=== PATIENT | male | born 1950 | race African-American/Black ===

== ENCOUNTER 2018-06-22 17:47 | Inpatient (IN) | payer MEDICARE, MEDICAID ==
[2018-06-22] VITALS (25 sets, daily range): BP systolic 100–218; BP diastolic 52–113; BMI 20.4
[~2018-06-22] VITALS: Ht 182.9 cm; Wt 68.2 kg
--- NOTE | ~2018-06-22 | MORECARE ---
CASE MANAGEMENT DISCHARGE SUMMARY PATIENT: TRINH MANNING UNIT: [id number] ADM DATE: 06/22/18 AGE: 67 : 49 SEX: M ROOM/BED: D.2303 AUTHOR: NEIL,DOC PHYSICIAN: REFERRING PHYSICIAN: DREW SANDERSON MD DATE OF SERVICE: 06/27/18 Discharge Plan Patient Name: TRINH MANNING Facility: [facility]:[place] : 1950 Planned Disposition: Home Anticipated Discharge Date: Discharge Date: Expected LOS: Initial Reviewer: [email or web address] Initial Review Date: 06/27/2018 Generated: 06/27/18 5:27 pm Comments DCP- Discharge Planning Updated by [email or web address]: April Arango on 06/27/18 3:[address] Patient Name: TRINH MANNING Admission Status: Elective Accout number: [id number] Admission Date: 06-22-2018 : 1950 Admission Diagnosis:SEPSIS, UNSPECIFIED ORGANISM Attending: DREW SANDERSON Current LOS: 5 Anticipated DC Date: Planned Disposition: Home Primary Insurance: [employer] ADV Discharge Planning Comments: CM met with patient and his sister (Aiyana) at bedside after verbal consent. Patient states he is planning on returning to his home with his sister. They live together in the home. Patient states he has a walker and wheelchair. Cm explained that if he had to continue with oxygen then he would need to have walk test. Patient denies any needs at this time. Cm will continue to follow and assist as needed with discharge planning / needs. Retail Marketing Specialist: April Arango DCPIA - Discharge Planning Initial Assessment Updated by [email or web address]: April Arango on 06/27/18 4:16 pm * Is the patient Alert and Oriented? Yes * How many steps to enter\exit or inside your home? * PCP DR GAINES * Pharmacy [facility] IN [place], [place] * Preadmission Environment Home with Family * ADLs Partial Dependent * Partial ADLs (Assistance needed) Bathing * Equipment Walker Wheelchair * List name and contact numbers for known caregivers / representatives who currently or will assist patient after discharge: AIYANA WARD (SISTER) [phone] * Verbal permission to speak to the caregivers and representatives has been obtained from the patient. Yes * Community resources currently utilized None * Additional services required to return to the preadmission environment? No * Can the patient safely return to the preadmission environment? Yes * Has this patient been hospitalized within the prior 30 days at any hospital? No Last DP export: 06/27/18 3:15 Patient Name: TRINH MANNING Page 63024 at 1627 All edits/amendments must be made on the electronic document DICTATION DATE: 06/27/181625 TUCK POINTER HELPER: DAPHNIE 06/27/181625 RPT#: [id number] DC DATE: STATUS: ADM IN [facility] [address] [place] [address] END OF REPORT
--- NOTE | ~2018-06-22 | MORECARE ---
CASE MANAGEMENT DISCHARGE SUMMARY PATIENT: TRINH MANNING UNIT: [id number] ADM DATE: 06/22/18 AGE: 67 : 49 SEX: M ROOM/BED: D.2303 AUTHOR: NEIL,DOC PHYSICIAN: REFERRING PHYSICIAN: DREW SANDERSON MD DATE OF SERVICE: 07/16/18 Discharge Plan Patient Name: TRINH MANNING Facility: [facility]:[place] : 1950 Planned Disposition: Home Anticipated Discharge Date: Discharge Date: Expected LOS: Initial Reviewer: [email or web address] Initial Review Date: 06/27/2018 Generated: 07/16/18 8:53 pm Comments DCP- Discharge Planning Updated by [email or web address]: April Arango on 07/16/18 6:[address] Late Entry 07/16/18 @ 1630 CM received notice from [facility] that patient had been denied. CM called and spoke with patients sister to see if she would mind if we faxed records to [facility] in [place]. Vidhya Ward patients sister requested records to be forwarded to [facility] in [place]. CM will contact [facility] in in am. CM will continue to follow and assist with discharge planning as needed. DCP- Discharge Planning Updated by [email or web address]: April Arango on 07/12/18 4:[address] CM received notice for [facility]ACH consult. CM spoke with patients sister Vidhya Ward she agreed on [facility]. CM called [phone] [facility] regarding referral. CM faxed [phone] records to [facility] with [facility]. [facility] stated it would probably be 1st on next week before determination of acceptance / denial is made. CM will continue to follow and assist as needed with discharge planning needs. DCP- Discharge Planning Updated by [email or web address]: April Arango on 06/27/18 4:[address] Patient Name: TRINH MANNING Admission Status: Elective Accout number: [id number] Admission Date: 06-22-2018 : 1950 Admission Diagnosis:SEPSIS, UNSPECIFIED ORGANISM Attending: DREW SANDERSON Current LOS: 5 Anticipated DC Date: Planned Disposition: Home Primary Insurance: [employer] MEDICARE ADV Discharge Planning Comments: CM met with patient and his sister (Vidhay) at bedside after verbal consent. Patient states he is planning on returning to his home with his sister. They live together in the home. Patient states he has a walker and wheelchair. Cm explained that if he had to continue with oxygen then he would need to have walk test. Patient denies any needs at this time. Cm will continue to follow and assist as needed with discharge planning / needs. Therapeutic Massage Technician: April Arango DCPIA - Discharge Planning Initial Assessment Updated by [email or web address]: April Arango on 06/27/18 4:16 pm * Is the patient Alert and Oriented? Yes * How many steps to enter\exit or inside your home? * PCP DR GAINES * Pharmacy [facility] IN [place], [place] * Preadmission Environment Home with Family * ADLs Partial Dependent * Partial ADLs (Assistance needed) Bathing * Equipment Walker Wheelchair * List name and contact numbers for known caregivers / representatives who currently or will assist patient after discharge: VIDHYA WARD (SISTER) [phone] * Verbal permission to speak to the caregivers and representatives has been obtained from the patient. Yes * Community resources currently utilized None * Additional services required to return to the preadmission environment? No * Can the patient safely return to the preadmission environment? Yes * Has this patient been hospitalized within the prior 30 days at any hospital? No Last DP export: 07/12/18 6:13 p Patient Name: TRINH MANNING Page 88730 at 1953 All edits/amendments must be made on the electronic document DICTATION DATE: 07/16/181952 AUTOMOTIVE PARTS COUNTER ASSOCIATE: DAPHNIE 07/16/181952 RPT#: [id number] DC DATE: STATUS: ADM IN [facility] [address] [place] [address] END OF REPORT
--- NOTE | ~2018-06-22 | MORECARE ---
CASE MANAGEMENT DISCHARGE SUMMARY PATIENT: TRINH MANNING UNIT: [id number] ADM DATE: 06/22/18 AGE: 67 : 49 SEX: M ROOM/BED: D.2303 AUTHOR: NEIL,DOC PHYSICIAN: REFERRING PHYSICIAN: DREW SANDERSON MD DATE OF SERVICE: 07/18/18 Discharge Plan Patient Name: TRINH MANNING Facility: [facility]:[place] : 1950 Planned Disposition: Home Anticipated Discharge Date: Discharge Date: 07/18/2018 Expected LOS: Initial Reviewer: [email or web address] Initial Review Date: 06/27/2018 Generated: 07/18/18 6:59 pm Comments DCP- Discharge Planning Updated by [email or web address]: April Arango on 07/18/18 4:[address] Late Entry 07/17/18 @ 1200 CM contacted Johnie with [facility] in [phone]. CM faxed records and verified that they had received them. Johnie stated that with [facility] it may take a day or so for auth. CM will continue to follow and assist with discharge planning. DCP- Discharge Planning Updated by [email or web address]: April Arango on 07/16/18 6:[address] Late Entry 07/16/18 @ 1630 CM received notice from Griselda @ [facility] that patient had been denied. CM called and spoke with patients sister to see if she would mind if we [facility] . Vidhya Ward patients sister requested records to be forwarded to [facility] in . CM will contact [facility] in in am. CM will continue to follow and assist with discharge planning as needed. DCP- Discharge Planning Updated by [email or web address]: April Arango on 07/12/18 4:[address] CM received notice for LTACH consult. MERVIN spoke with patients sister Vidhya Ward she agreed on [facility]. MERVIN called [phone] facility regarding referral. MERVIN faxed [phone] records to [facility] with [facility]. [facility]isel[facility] stated it would probably be 1st on next week before determination of acceptance / denial is made. CM will continue to follow and assist as needed with discharge planning needs. DCP- Discharge Planning Updated by [email or web address]: April Arango on 06/27/18 4:[address] Patient Name: TRINH MANNING Admission Status: Elective Accout number: [id number] Admission Date: 06-22-2018 : 1950 Admission Diagnosis:SEPSIS, UNSPECIFIED ORGANISM Attending: DREW SANDERSON Current LOS: 5 Anticipated DC Date: Planned Disposition: Home Primary Insurance: [employer] MEDICARE ADV Discharge Planning Comments: CM met with patient and his sister (Vidhya) at bedside after verbal consent. Patient states he is planning on returning to his home with his sister. They live together in the home. Patient states he has a walker and wheelchair. Cm explained that if he had to continue with oxygen then he would need to have walk test. Patient denies any needs at this time. Cm will continue to follow and assist as needed with discharge planning / needs. Motor Adjuster: April Arango DCPIA - Discharge Planning Initial Assessment Updated by [email or web address]: April Arango on 06/27/18 4:16 pm * Is the patient Alert and Oriented? Yes * How many steps to enter\exit or inside your home? * PCP DR GAINES * Pharmacy [facility] IN [place], [place] * Preadmission Environment Home with Family * ADLs Partial Dependent * Partial ADLs (Assistance needed) Bathing * Equipment Walker Wheelchair * List name and contact numbers for known caregivers / representatives who currently or will assist patient after discharge: VIDHYA WARD (SISTER) [phone] * Verbal permission to speak to the caregivers and representatives has been obtained from the patient. Yes * Community resources currently utilized None * Additional services required to return to the preadmission environment? No * Can the patient safely return to the preadmission environment? Yes * Has this patient been hospitalized within the prior 30 days at any hospital? No Last DP export: 07/17/18 11:54 a Patient Name: TRINH MANNING Page 68148 at 5059 All edits/amendments must be made on the electronic document DICTATION DATE: 07/18/18 8461 LABORER POULTRY HATCHERY: DAPHNIE 07/18/18 1759 RPT#: [id number] DC DATE:07/18/18 STATUS: DIS IN [facility] [address] [place] [address] END OF REPORT
--- NOTE | ~2018-06-22 | OP ---
PATIENT NAME: TRINH MANNING MEDICAL RECORD: [id number] :[birth year] LOCATION:[facility] D.2303 ADMISSION DATE:06/22/18 SURGEON: RAJAT LUO MD DATE OF OPERATION: 07/18/2018 SURGEON: Rajat Luo MD FRAMING AND HANGING: None. ANESTHESIOLOGIST: Richard DESCRIPTION OF PROCEDURE: No surgery performed. PROCEDURE IN DETAIL: The patient underwent intubation for lung biopsy, but became bradycardic and then pulseless, and CPR and ACLS protocol were initiated. Over the next hour, he had 3 separate pulseless episodes neither lasting greater than 1 minute and some significant hypoxemia. The tube position was confirmed. The patient was eventually stabilized on epinephrine and Levophed and transferred back to the intensive care. Discussion with his son. TRANSINT:[id number] Voice Confirmation ID: [id number] DOCUMENT ID: [id number] RAJAT LUO MD at 0755 CC: ALON DODD MD [id number] DICTATION DATE: 07/18/18 1138 TAP PULLER: 07/18/18 1151 DIS IN 07/18/18 [place] [address] [place] [address]
--- NOTE | ~2018-06-22 | MORECARE ---
CASE MANAGEMENT DISCHARGE SUMMARY PATIENT: TRINH MANNING UNIT: [id number] ADM DATE: 06/22/18 AGE: 67 : 49 SEX: M ROOM/BED: D.2303 AUTHOR: NEIL,DOC PHYSICIAN: REFERRING PHYSICIAN: DREW SANDERSON MD DATE OF SERVICE: 07/17/18 Discharge Plan Patient Name: TRINH MANNING Facility: [facility]:[place] : 1950 Planned Disposition: Home Anticipated Discharge Date: Discharge Date: Expected LOS: Initial Reviewer: [email or web address] Initial Review Date: 06/27/2018 Generated: 07/17/18 1:54 pm Comments DCP- Discharge Planning Updated by [email or web address]: April Arango on 07/16/18 6:[address] Late Entry 07/16/18 @ 1630 CM received notice from [facility] that patient had been denied. CM called and spoke with patients sister to see if she would mind if we faxed records to [facility] in [place]. Vidhya Ward patients sister requested records to be forwarded to [facility] in [place]. CM will contact [facility] in in am. CM will continue to follow and assist with discharge planning as needed. DCP- Discharge Planning Updated by [email or web address]: April Arango on 07/12/18 4:[address] CM received notice for LTACH consult. CM spoke with patients sister Vidhya Ward she agreed on [facility]. CM called [phone] [facility] regarding referral. CM faxed [phone] records to [facility] with [facility]. [facility] stated it would probably be 1st on next week before determination of acceptance / denial is made. CM will continue to follow and assist as needed with discharge planning needs. DCP- Discharge Planning Updated by [email or web address]: April Arango on 06/27/18 4:[address] Patient Name: TRINH MANNING Admission Status: Elective Accout number: [id number] Admission Date: 06-22-2018 : 1950 Admission Diagnosis:SEPSIS, UNSPECIFIED ORGANISM Attending: DREW SANDERSON Current LOS: 5 Anticipated DC Date: Planned Disposition: Home Primary Insurance: [employer] MEDICARE ADV Discharge Planning Comments: CM met with patient and his sister (Vidhya) at bedside after verbal consent. Patient states he is planning on returning to his home with his sister. They live together in the home. Patient states he has a walker and wheelchair. Cm explained that if he had to continue with oxygen then he would need to have walk test. Patient denies any needs at this time. Cm will continue to follow and assist as needed with discharge planning / needs. Graphic Design Assistant: April Arango DCPIA - Discharge Planning Initial Assessment Updated by [email or web address]: April Arango on 06/27/18 4:16 pm * Is the patient Alert and Oriented? Yes * How many steps to enter\exit or inside your home? * PCP DR GAINES * Pharmacy [facility] IN [place], [place] * Preadmission Environment Home with Family * ADLs Partial Dependent * Partial ADLs (Assistance needed) Bathing * Equipment Walker Wheelchair * List name and contact numbers for known caregivers / representatives who currently or will assist patient after discharge: VIDHYA WARD (SISTER) [phone] * Verbal permission to speak to the caregivers and representatives has been obtained from the patient. Yes * Community resources currently utilized None * Additional services required to return to the preadmission environment? No * Can the patient safely return to the preadmission environment? Yes * Has this patient been hospitalized within the prior 30 days at any hospital? No External Providers External Provider: [facility] Next Contact Date: Service Request Date: Service Type: Resolution: Reviewer: Comments: Last DP export: 07/16/18 6:53 p Patient Name: TRINH MANNING Page 46740 at 1255 All edits/amendments must be made on the electronic document DICTATION DATE: 07/17/18 125 PRODUCTION SCHEDULER: DAPHNIE 07/17/18 125 RPT#: [id number] DC DATE: STATUS: ADM IN [facility] [address] [place] [address] END OF REPORT
--- NOTE | ~2018-06-22 | MORECARE ---
CASE MANAGEMENT DISCHARGE SUMMARY PATIENT: TRINH MANNING UNIT: [id number] ADM DATE: 06/22/18 AGE: 67 : 49 SEX: M ROOM/BED: D.2303 AUTHOR: NEIL,DOC PHYSICIAN: REFERRING PHYSICIAN: DREW SANDERSON MD DATE OF SERVICE: 07/12/18 Discharge Plan Patient Name: TRINH MANNING Facility: [facility]:[place] : 1950 Planned Disposition: Home Anticipated Discharge Date: Discharge Date: Expected LOS: Initial Reviewer: [email or web address] Initial Review Date: 06/27/2018 Generated: 07/12/18 5:49 pm Comments DCP- Discharge Planning Updated by [email or web address]: April Arango on 07/12/18 3:[address] CM received notice for LTACH consult. CM spoke with patients sister Vidhya Ward she agreed on [facility]. CM called [phone] [facility] regarding referral. CM faxed [phone] records to [facility] with [facility]. [facility] stated it would probably be 1st on next week before determination of acceptance / denial is made. CM will continue to follow and assist as needed with discharge planning needs. DCP- Discharge Planning Updated by [email or web address]: April Arango on 06/27/18 3:[address] Patient Name: TRINH MANNING Admission Status: Elective Accout number: [id number] Admission Date: 06-22-2018 : 1950 Admission Diagnosis:SEPSIS, UNSPECIFIED ORGANISM Attending: DREW SANDERSON Current LOS: 5 Anticipated DC Date: Planned Disposition: Home Primary Insurance: [employer] MEDICARE ADV Discharge Planning Comments: CM met with patient and his sister (Vidhya) at bedside after verbal consent. Patient states he is planning on returning to his home with his sister. They live together in the home. Patient states he has a walker and wheelchair. Cm explained that if he had to continue with oxygen then he would need to have walk test. Patient denies any needs at this time. Cm will continue to follow and assist as needed with discharge planning / needs. Recreation Programmer: April Arango DCPIA - Discharge Planning Initial Assessment Updated by [email or web address]: April Arango on 06/27/18 4:16 pm * Is the patient Alert and Oriented? Yes * How many steps to enter\exit or inside your home? * PCP DR GAINES * Pharmacy [facility] IN [place], [place] * Preadmission Environment Home with Family * ADLs Partial Dependent * Partial ADLs (Assistance needed) Bathing * Equipment Walker Wheelchair * List name and contact numbers for known caregivers / representatives who currently or will assist patient after discharge: VIHDYA WARD (SISTER) [phone] * Verbal permission to speak to the caregivers and representatives has been obtained from the patient. Yes * Community resources currently utilized None * Additional services required to return to the preadmission environment? No * Can the patient safely return to the preadmission environment? Yes * Has this patient been hospitalized within the prior 30 days at any hospital? No Last DP export: 06/27/18 3:27 Patient Name: TRINH MANNING Page 66741 at 1649 All edits/amendments must be made on the electronic document DICTATION DATE: 07/12/181647 PACKAGE DRIER: DAPHNIE 07/12/181647 RPT#: [id number] DC DATE: STATUS: ADM IN [facility] [address] [place] [address] END OF REPORT
--- NOTE | ~2018-06-22 | MORECARE ---
CASE MANAGEMENT DISCHARGE SUMMARY PATIENT: TRINH MANNING UNIT: [id number] ADM DATE: 06/22/18 AGE: 67 : 49 SEX: M ROOM/BED: D.2303 AUTHOR: NEIL,DOC PHYSICIAN: REFERRING PHYSICIAN: DREW SANDERSON MD DATE OF SERVICE: 07/12/18 Discharge Plan Patient Name: TRINH MANNING Facility: [facility]:[place] : 1950 Planned Disposition: Home Anticipated Discharge Date: Discharge Date: Expected LOS: Initial Reviewer: [email or web address] Initial Review Date: 06/27/2018 Generated: 07/12/18 7:13 pm Comments DCP- Discharge Planning Updated by [email or web address]: April Arango on 07/12/18 3:[address] CM received notice for LTACH consult. CM spoke with patients sister Vidhya Ward she agreed on [facility]. CM called [phone] [facility] regarding referral. CM faxed [phone] records to [facility] with [facility]. [facility] stated it would probably be 1st on next week before determination of acceptance / denial is made. CM will continue to follow and assist as needed with discharge planning needs. DCP- Discharge Planning Updated by [email or web address]: April Arango on 06/27/18 3:[address] Patient Name: TRINH MANNING Admission Status: Elective Accout number: [id number] Admission Date: 06-22-2018 : 1950 Admission Diagnosis:SEPSIS, UNSPECIFIED ORGANISM Attending: DREW SANDERSON Current LOS: 5 Anticipated DC Date: Planned Disposition: Home Primary Insurance: [employer] MEDICARE ADV Discharge Planning Comments: CM met with patient and his sister (Vidhya) at bedside after verbal consent. Patient states he is planning on returning to his home with his sister. They live together in the home. Patient states he has a walker and wheelchair. Cm explained that if he had to continue with oxygen then he would need to have walk test. Patient denies any needs at this time. Cm will continue to follow and assist as needed with discharge planning / needs. Candy Maker: April Arango DCPIA - Discharge Planning Initial Assessment Updated by [email or web address]: April Arango on 06/27/18 4:16 pm * Is the patient Alert and Oriented? Yes * How many steps to enter\exit or inside your home? * PCP DR GAINES * Pharmacy [facility] IN [place], [place] * Preadmission Environment Home with Family * ADLs Partial Dependent * Partial ADLs (Assistance needed) Bathing * Equipment Walker Wheelchair * List name and contact numbers for known caregivers / representatives who currently or will assist patient after discharge: VIDHYA WARD (SISTER) [phone] * Verbal permission to speak to the caregivers and representatives has been obtained from the patient. Yes * Community resources currently utilized None * Additional services required to return to the preadmission environment? No * Can the patient safely return to the preadmission environment? Yes * Has this patient been hospitalized within the prior 30 days at any hospital? No External Providers External Provider: [facility] Next Contact Date: Service Request Date: Service Type: Resolution: Reviewer: Comments: Last DP export: 07/12/18 3:49 p Patient Name: TRINH MANNING Page 00558 at 1813 All edits/amendments must be made on the electronic document DICTATION DATE: 07/12/181811 ONCOLOGY REGISTRAR: DAPHNIE 07/12/181811 RPT#: [id number] DC DATE: STATUS: ADM IN [facility] [address] [place] [address] END OF REPORT
--- NOTE | ~2018-06-22 | MORECARE ---
CASE MANAGEMENT DISCHARGE SUMMARY PATIENT: TRINH MANNING UNIT: [id number] ADM DATE: 06/22/18 AGE: 67 : 49 SEX: M ROOM/BED: D.2303 AUTHOR: ESTUARDO TREJO PHYSICIAN: REFERRING PHYSICIAN: DREW SANDERSON MD DATE OF SERVICE: 06/27/18 Discharge Plan Patient Name: TRINH MANNING Facility: [facility]:[place] : 1950 Planned Disposition: Home Anticipated Discharge Date: Discharge Date: Expected LOS: Initial Reviewer: [email or web address] Initial Review Date: 06/27/2018 Generated: 06/27/18 5:15 pm Last DP export: 06/26/18 3:59 Patient Name: TRINH MANNING Page 36495 at 1615 All edits/amendments must be made on the electronic document DICTATION DATE: 06/27/[address] MAINTENANCE CREW WORKER: DAPHNIE 06/27/18 1615 RPT#: [id number] DC DATE: STATUS: ADM IN [facility] [address] [place] [address] END OF REPORT
--- NOTE | ~2018-06-22 | MORECARE ---
CASE MANAGEMENT DISCHARGE SUMMARY PATIENT: TRINH MANNING UNIT: [id number] ADM DATE: 06/22/18 AGE: 67 : 49 SEX: M ROOM/BED: D.2303 AUTHOR: NEIL,DOC PHYSICIAN: REFERRING PHYSICIAN: DREW SANDERSON MD DATE OF SERVICE: 07/18/18 Discharge Plan Patient Name: TRINH MANNING Facility: [facility]:[place] : 1950 Planned Disposition: Home Anticipated Discharge Date: Discharge Date: 07/18/2018 Expected LOS: Initial Reviewer: [email or web address] Initial Review Date: 06/27/2018 Generated: 07/18/18 7:07 pm Comments DCP- Discharge Planning Updated by [email or web address]: April Arango on 07/18/18 5:[address] Late Entry 07/18/18 @ 0900 CM was notified this am patients conditioned had worsened and family was trying to decide on comfort care only. CM called and notified Johnie at [facility] to cancel referral for now. CM will continue to follow and assist as needed with discharge planning / needs. DCP- Discharge Planning Updated by [email or web address]: April Arango on 07/18/18 4:[address] Late Entry 07/17/18 @ 1200 CM contacted Johnie with [facility] in [place] [phone]. CM faxed records and verified that they had received them. Johnie stated that with [employer] it may take a day or so for auth. CM will continue to follow and assist with discharge planning. DCP- Discharge Planning Updated by [email or web address]: April Arango on 07/16/18 6:[address] Late Entry 07/16/18 @ 1630 CM received notice from Griselda @ [facility] that patient had been denied. CM called and spoke with patients sister to see if she would mind if we faxed records to [facility] in . Vidhya Ward patients sister requested records to be forwarded to [facility] in . CM will contact [facility] in in am. CM will continue to follow and assist with discharge planning as needed. DCP- Discharge Planning Updated by [email or web address]: April Arango on 07/12/18 4:[address] CM received notice for LTACH consult. CM spoke with patients sister Vidhya Ward she agreed on [facility]. CM called [phone] [facility] regarding referral. MERVIN faxed [phone] records to Griselda with [facility]. Griselda stated it would probably be 1st on next week before determination of acceptance / denial is made. CM will continue to follow and assist as needed with discharge planning needs. DCP- Discharge Planning Updated by [email or web address]: April Arango on 06/27/18 4:[address] Patient Name: TRINH MANNING Admission Status: Elective Accout number: [id number] Admission Date: 06-22-2018 : 1950 Admission Diagnosis:SEPSIS, UNSPECIFIED ORGANISM Attending: DREW SANDERSON Current LOS: 5 Anticipated DC Date: Planned Disposition: Home Primary Insurance: [employer] ADV Discharge Planning Comments: CM met with patient and his sister (Vidhya) at bedside after verbal consent. Patient states he is planning on returning to his home with his sister. They live together in the home. Patient states he has a walker and wheelchair. Cm explained that if he had to continue with oxygen then he would need to have walk test. Patient denies any needs at this time. Cm will continue to follow and assist as needed with discharge planning / needs. Materials Handling Equipment Operator: April Arango DCPIA - Discharge Planning Initial Assessment Updated by [email or web address]: April Arango on 06/27/18 4:16 pm * Is the patient Alert and Oriented? Yes * How many steps to enter\exit or inside your home? * PCP DR GAINES * Pharmacy [facility] IN [place], [place] * Preadmission Environment Home with Family * ADLs Partial Dependent * Partial ADLs (Assistance needed) Bathing * Equipment Walker Wheelchair * List name and contact numbers for known caregivers / representatives who currently or will assist patient after discharge: VIDHYA WARD (SISTER) [phone] * Verbal permission to speak to the caregivers and representatives has been obtained from the patient. Yes * Community resources currently utilized None * Additional services required to return to the preadmission environment? No * Can the patient safely return to the preadmission environment? Yes * Has this patient been hospitalized within the prior 30 days at any hospital? No Last DP export: 07/18/18 4:59 p Patient Name: TRINH MANNING Page [id number] at 1807 All edits/amendments must be made on the electronic document DICTATION DATE: 07/18/181805 CREW MANAGER: DAPHNIE 07/18/181805 RPT#: [id number] DC DATE:07/18/18 STATUS: DIS IN [facility] [address] [place] [address] END OF REPORT
--- NOTE | ~2018-06-22 | MORECARE ---
CASE MANAGEMENT DISCHARGE SUMMARY PATIENT: TRINH MANNING UNIT: [id number] ADM DATE: 06/22/18 AGE: 67 : 49 SEX: M ROOM/BED: D.2303 AUTHOR: ESTUARDO TREJO PHYSICIAN: REFERRING PHYSICIAN: DREW SANDERSON MD DATE OF SERVICE: 06/26/18 Discharge Plan Patient Name: TRINH MANNING Facility: [facility]:[place] : 1950 Planned Disposition: Anticipated Discharge Date: Discharge Date: Expected LOS: Initial Reviewer: [email or web address] Initial Review Date: 06/26/2018 Generated: 06/26/18 5:59 pm Patient Name: TRINH MANNING Page [id number] at 1653 All edits/amendments must be made on the electronic document DICTATION DATE: 06/26/181658 MILL TENDER SECOND OPERATOR: DAPHNIE 06/26/181658 RPT#: [id number] DC DATE: STATUS: ADM IN [facility] [address] [place] [address] END OF REPORT
[2018-06-22 18:34] LABS: BASOPHILS 0.1 % (0-2); EOSINOPHILS 0 % (0-7); IMMATURE GRANULOCYTES 0.7 % (0-5); LYMPHOCYTES 11.5 % (15-50); MCH 31.8 pg (26.0-34.0); MCHC 35.2 g/dL (31.0-37.0); MCV 90.5 fL (80.0-100.0); MEAN PLATELET VOLUME 10.1 fL (7.4-10.4); MONOCYTES 4.4 % (2-11); NEUTROPHILS 83.3 % (40-80); PLATELET COUNT 137 10x3/uL (130-400); RDW 14.3 % (11.5-14.5); WBC 6.8 10x3/uL (4.8-10.8)
[2018-06-22 18:37] LABS: HEMATOCRIT 19.9 % (42.0-54.0)
[2018-06-22 19:15] LABS: HEMOGLOBIN 11.1 g/dL (13.5-17.5)
[2018-06-22 19:17] LABS: HEMATOCRIT 34.6 % (42.0-54.0)
[2018-06-22 20:00] LABS: ALBUMIN 1.6 g/dL (3.4-5.0); ALKALINE PHOSPHATASE 94 U/L (46-116); ALT (SGPT) 684 U/L (10-68); BILIRUBIN - TOTAL 1.88 mg/dL (0.2-1.3); CALC OSMOLALITY 299 mosm/kg (275-300); CALCIUM 7.1 mg/dL (8.5-10.1); CARBON DIOXIDE 22.3 mmol/L (21.0-32.0); CHLORIDE - SERUM 101 mmol/L (98-107); CKMB 1.1 U/L (0.0-3.6); CREATINE KINASE 112 UL (21-232); CREATININE - SERUM 1.4 mg/dL (0.6-1.3); POTASSIUM - SERUM 3.8 mmol/L (3.5-5.1); PROTEIN - SERUM 6.3 g/dL (6.4-8.2); SODIUM 137 mmol/L (136-145); UREA NITROGEN 22 mg/dL (7-18); eGFR NON AFRICAN AMERICAN 53 mL/min (90-120)
[2018-06-22 20:01] LABS: GLUCOSE 518 mg/dL (74-106)
[2018-06-22 20:02] LABS: TROPONIN-I 0.202 ng/mL (0.000-0.060)
[2018-06-22 20:35] LABS: PROTIME 22.1 SECONDS (11.6-15.0)
[2018-06-23] VITALS (104 sets, daily range): BP systolic 77–149; BP diastolic 50–90
[2018-06-23] MEDS ORDERED: PRADAXA150 MG PO (01:56)
[2018-06-23] MEDS ORDERED: COREG6.25 MG PO (01:56)
[2018-06-23] MEDS ORDERED: SYNTHROID25 MCG (01:57)
[2018-06-23] MEDS ORDERED: ZESTRIL40 MG PO (01:57)
[2018-06-23] MEDS ORDERED: PACERONE400 MG PO (01:58)
[2018-06-23] MEDS ORDERED: FLOMAX0.4 MG PO (01:58)
[2018-06-23] MEDS ORDERED: FARXIGA10 MG PO (01:58)
[2018-06-23] MEDS ORDERED: LIPITOR10 MG PO (01:59)
[2018-06-23] MEDS ORDERED: LASIX40 MG PO (01:59)
[2018-06-23] MEDS ORDERED: MUCINEX600 MG PO (02:00)
[2018-06-23] MEDS ORDERED: CLARITIN 10 MG10 MG PO (02:00)
[2018-06-23] MEDS ORDERED: FOLTX TABLET1 EACH PO (02:01)
[2018-06-23] MEDS ORDERED: CENTRUM MEN'S1 EACH PO (02:01)
[2018-06-23 06:52] LABS: BASOPHILS 0.1 % (0-2); EOSINOPHILS 0 % (0-7); HEMATOCRIT 36.4 % (42.0-54.0); HEMOGLOBIN 11.9 g/dL (13.5-17.5); IMMATURE GRANULOCYTES 0.8 % (0-5); LYMPHOCYTES 5.2 % (15-50); MCH 27.9 pg (26.0-34.0); MCHC 32.7 g/dL (31.0-37.0); MEAN PLATELET VOLUME 10.3 fL (7.4-10.4); MONOCYTES 4.2 % (2-11); NEUTROPHILS 89.7 % (40-80); RDW 14.3 % (11.5-14.5)
[2018-06-23 06:59] LABS: MCV 85.4 fL (80.0-100.0); PLATELET COUNT 249 10x3/uL (130-400); RBC 4.26 10x6/uL (4.20-6.10); WBC 15.8 10x3/uL (4.8-10.8)
[2018-06-23 08:18] LABS: ALBUMIN 1.6 g/dL (3.4-5.0); ANION GAP 13.6 mmol/L (8-16); BILIRUBIN - TOTAL 1.01 mg/dL (0.2-1.3); CALCIUM 7.9 mg/dL (8.5-10.1); CARBON DIOXIDE 26.2 mmol/L (21.0-32.0); CREATININE - SERUM 1.2 mg/dL (0.6-1.3); POTASSIUM - SERUM 3.8 mmol/L (3.5-5.1); PROTEIN - SERUM 7.3 g/dL (6.4-8.2)
[2018-06-23 09:16] LABS: MAGNESIUM - SERUM 1.9 mg/dL (1.8-2.4); PHOSPHOROUS 2.4 mg/dL (2.5-4.9)
[2018-06-24] VITALS (60 sets, daily range): BP systolic 85–129; BP diastolic 8–80; Ht 182.9 cm; Wt 68.2 kg
[2018-06-24 04:32] LABS: BASOPHILS 0.1 % (0-2); EOSINOPHILS 0 % (0-7); HEMATOCRIT 39.7 % (42.0-54.0); HEMOGLOBIN 13.2 g/dL (13.5-17.5); IMMATURE GRANULOCYTES 0.5 % (0-5); MCH 28.6 pg (26.0-34.0); MCHC 33.2 g/dL (31.0-37.0); MCV 85.9 fL (80.0-100.0); MONOCYTES 4.7 % (2-11); NEUTROPHILS 89.7 % (40-80); PLATELET COUNT 228 10x3/uL (130-400); RBC 4.62 10x6/uL (4.20-6.10); RDW 14.3 % (11.5-14.5); WBC 17.5 10x3/uL (4.8-10.8)
[2018-06-24 04:47] LABS: INR 1.43 (0.85-1.17)
[2018-06-24 04:54] LABS: D-DIMER-QUANTITATIVE 6.33 ug/mLFEU (0.20-0.54)
[2018-06-24 06:19] LABS: ANION GAP 13.8 mmol/L (8-16); CARBON DIOXIDE 27.4 mmol/L (21.0-32.0); CREATININE - SERUM 1.1 mg/dL (0.6-1.3); POTASSIUM - SERUM 3.2 mmol/L (3.5-5.1)
[2018-06-24 06:21] LABS: BILIRUBIN - TOTAL 0.64 mg/dL (0.2-1.3); PROTEIN - SERUM 5.1 g/dL (6.4-8.2)
[2018-06-24 06:22] LABS: MAGNESIUM - SERUM 2.2 mg/dL (1.8-2.4)
[2018-06-24 06:23] LABS: CALCIUM 6.6 mg/dL (8.5-10.1)
[2018-06-24 06:32] LABS: ALBUMIN 1.4 g/dL (3.4-5.0)
[2018-06-25] VITALS (36 sets, daily range): BP systolic 83–131; BP diastolic 43–74
[2018-06-25 04:59] LABS: ALBUMIN 1.2 g/dL (3.4-5.0); BILIRUBIN - TOTAL 0.5 mg/dL (0.2-1.3); CALCIUM 7.2 mg/dL (8.5-10.1); CARBON DIOXIDE 30.4 mmol/L (21.0-32.0); CREATININE - SERUM 1.1 mg/dL (0.6-1.3); POTASSIUM - SERUM 3.4 mmol/L (3.5-5.1); PROTEIN - SERUM 5.8 g/dL (6.4-8.2)
[2018-06-25 05:29] LABS: HEMATOCRIT 32.9 % (42.0-54.0); HEMOGLOBIN 10.7 g/dL (13.5-17.5); MCH 28.1 pg (26.0-34.0); MCHC 32.5 g/dL (31.0-37.0); MCV 86.4 fL (80.0-100.0); MEAN PLATELET VOLUME 11.5 fL (7.4-10.4); PLATELET COUNT 236 10x3/uL (130-400); RBC 3.81 10x6/uL (4.20-6.10); RDW 14.6 % (11.5-14.5); WBC 20.8 10x3/uL (4.8-10.8)
[2018-06-25 06:42] LABS: LYMPHOCYTES 7 % (15-50); MONOCYTES 6 % (2-11); NEUTROPHILS 78 % (40-80); PLATELET ESTIMATE NORMAL; ROULEAUX OCC
[2018-06-26] VITALS (24 sets, daily range): BP systolic 59–145; BP diastolic 55–82
[2018-06-26 04:43] LABS: BASOPHILS 0 % (0-2); EOSINOPHILS 0 % (0-7); HEMATOCRIT 35.3 % (42.0-54.0); HEMOGLOBIN 11.3 g/dL (13.5-17.5); IMMATURE GRANULOCYTES 1.2 % (0-5); LYMPHOCYTES 5.6 % (15-50); MCH 27.7 pg (26.0-34.0); MCV 86.5 fL (80.0-100.0); MEAN PLATELET VOLUME 10.6 fL (7.4-10.4); MONOCYTES 4.5 % (2-11); NEUTROPHILS 88.7 % (40-80); PLATELET COUNT 254 10x3/uL (130-400); RBC 4.08 10x6/uL (4.20-6.10); RDW 14.5 % (11.5-14.5); WBC 21.9 10x3/uL (4.8-10.8)
[2018-06-26 05:08] LABS: ALBUMIN 1.3 g/dL (3.4-5.0); ANION GAP 11.5 mmol/L (8-16); BILIRUBIN - TOTAL 0.44 mg/dL (0.2-1.3); CALCIUM 7.3 mg/dL (8.5-10.1); CREATININE - SERUM 1.2 mg/dL (0.6-1.3); POTASSIUM - SERUM 3.5 mmol/L (3.5-5.1); PROTEIN - SERUM 5.7 g/dL (6.4-8.2)
[2018-06-26 14:25] LABS: EHRLICHIA CHAFF IGG Negative (Neg:<1:64); EHRLICHIA CHAFF IGM Negative (Neg:<1:20); HGE IGG TITER Negative (Neg:<1:64); HGE IGM TITER Negative (Neg:<1:20)
[2018-06-27] VITALS (23 sets, daily range): BP systolic 128–173; BP diastolic 69–90
[2018-06-27 04:53] LABS: BASOPHILS 0 % (0-2); EOSINOPHILS 0 % (0-7); HEMATOCRIT 37.1 % (42.0-54.0); HEMOGLOBIN 12.2 g/dL (13.5-17.5); IMMATURE GRANULOCYTES 1.6 % (0-5); LYMPHOCYTES 3.5 % (15-50); MCH 28.2 pg (26.0-34.0); MCHC 32.9 g/dL (31.0-37.0); MCV 85.9 fL (80.0-100.0); MEAN PLATELET VOLUME 11.1 fL (7.4-10.4); MONOCYTES 4.8 % (2-11); NEUTROPHILS 90.1 % (40-80); PLATELET COUNT 230 10x3/uL (130-400); RBC 4.32 10x6/uL (4.20-6.10); RDW 14.3 % (11.5-14.5); WBC 22.3 10x3/uL (4.8-10.8)
[2018-06-27 05:04] LABS: ALBUMIN 1.4 g/dL (3.4-5.0); ALKALINE PHOSPHATASE 83 U/L (46-116); ALT (SGPT) 172 U/L (10-68); BILIRUBIN - TOTAL 0.54 mg/dL (0.2-1.3); CALC OSMOLALITY 293 mosm/kg (275-300); CALCIUM 7.1 mg/dL (8.5-10.1); CARBON DIOXIDE 25.9 mmol/L (21.0-32.0); CHLORIDE - SERUM 106 mmol/L (98-107); GLUCOSE 214 mg/dL (74-106); POTASSIUM - SERUM 3.9 mmol/L (3.5-5.1); PROTEIN - SERUM 5.6 g/dL (6.4-8.2); SODIUM 141 mmol/L (136-145); UREA NITROGEN 33 mg/dL (7-18); VANCOMYCIN - RANDOM 19.2 ug/mL (10.0-20.0); eGFR NON AFRICAN AMERICAN 79 mL/min (90-120)
[2018-06-27 13:14] LABS: F. TULARENSIS - IGG Negative (()); F. TULARENSIS - IGM Negative (())
[2018-06-28] VITALS (24 sets, daily range): BP systolic 114–196; BP diastolic 65–97
[2018-06-28 03:17] LABS: BASOPHILS 0.1 % (0-2); EOSINOPHILS 0 % (0-7); HEMATOCRIT 34.6 % (42.0-54.0); HEMOGLOBIN 11.5 g/dL (13.5-17.5); IMMATURE GRANULOCYTES 3.5 % (0-5); MCH 27.8 pg (26.0-34.0); MCHC 33.2 g/dL (31.0-37.0); MCV 83.8 fL (80.0-100.0); MEAN PLATELET VOLUME 10.5 fL (7.4-10.4); MONOCYTES 4.1 % (2-11); NEUTROPHILS 89.3 % (40-80); PLATELET COUNT 251 10x3/uL (130-400); RBC 4.13 10x6/uL (4.20-6.10); RDW 14.1 % (11.5-14.5); WBC 31.6 10x3/uL (4.8-10.8)
[2018-06-28 03:25] LABS: CALC OSMOLALITY 285 mosm/kg (275-300); CALCIUM 7.6 mg/dL (8.5-10.1); CHLORIDE - SERUM 104 mmol/L (98-107); CREATININE - SERUM 0.9 mg/dL (0.6-1.3); GLUCOSE 185 mg/dL (74-106); POTASSIUM - SERUM 3.9 mmol/L (3.5-5.1); SODIUM 138 mmol/L (136-145); UREA NITROGEN 27 mg/dL (7-18); eGFR NON AFRICAN AMERICAN 89 mL/min (90-120)
[2018-06-29] VITALS (24 sets, daily range): BP systolic 129–188; BP diastolic 69–99
[2018-06-29 03:50] LABS: BASOPHILS 0 % (0-2); EOSINOPHILS 0.2 % (0-7); HEMATOCRIT 32.7 % (42.0-54.0); HEMOGLOBIN 10.8 g/dL (13.5-17.5); IMMATURE GRANULOCYTES 6.6 % (0-5); LYMPHOCYTES 3.1 % (15-50); MCH 27.6 pg (26.0-34.0); MCV 83.4 fL (80.0-100.0); MEAN PLATELET VOLUME 10.2 fL (7.4-10.4); MONOCYTES 4.6 % (2-11); NEUTROPHILS 85.5 % (40-80); PLATELET COUNT 204 10x3/uL (130-400); RBC 3.92 10x6/uL (4.20-6.10); RDW 14.3 % (11.5-14.5); WBC 25.6 10x3/uL (4.8-10.8)
[2018-06-29 03:57] LABS: ANION GAP 10.4 mmol/L (8-16); CALCIUM 7.6 mg/dL (8.5-10.1); CARBON DIOXIDE 28.8 mmol/L (21.0-32.0); CREATININE - SERUM 1.1 mg/dL (0.6-1.3); POTASSIUM - SERUM 4.2 mmol/L (3.5-5.1)
[2018-06-30] VITALS (16 sets, daily range): BP systolic 112–181; BP diastolic 9–99
[2018-06-30 04:44] LABS: BASOPHILS 0.1 % (0-2); EOSINOPHILS 0.1 % (0-7); HEMATOCRIT 38.8 % (42.0-54.0); HEMOGLOBIN 12.9 g/dL (13.5-17.5); IMMATURE GRANULOCYTES 4.7 % (0-5); LYMPHOCYTES 4.9 % (15-50); MCH 27.8 pg (26.0-34.0); MCHC 33.2 g/dL (31.0-37.0); MCV 83.6 fL (80.0-100.0); MEAN PLATELET VOLUME 10.8 fL (7.4-10.4); MONOCYTES 4.8 % (2-11); NEUTROPHILS 85.4 % (40-80); PLATELET COUNT 236 10x3/uL (130-400); RBC 4.64 10x6/uL (4.20-6.10); RDW 14.5 % (11.5-14.5); WBC 27.2 10x3/uL (4.8-10.8)
[2018-06-30 08:57] LABS: ANION GAP 11.2 mmol/L (8-16); CALCIUM 7.8 mg/dL (8.5-10.1); CARBON DIOXIDE 29.8 mmol/L (21.0-32.0); CREATININE - SERUM 1.1 mg/dL (0.6-1.3)
[2018-07-01] VITALS (32 sets, daily range): BP systolic 106–181; BP diastolic 62–130
[2018-07-01 04:07] LABS: BASOPHILS 0.1 % (0-2); EOSINOPHILS 0.1 % (0-7); HEMATOCRIT 35.3 % (42.0-54.0); IMMATURE GRANULOCYTES 2.7 % (0-5); LYMPHOCYTES 3.4 % (15-50); MCH 28.4 pg (26.0-34.0); MCV 83.5 fL (80.0-100.0); MEAN PLATELET VOLUME 10.8 fL (7.4-10.4); MONOCYTES 3.8 % (2-11); NEUTROPHILS 89.9 % (40-80); PLATELET COUNT 262 10x3/uL (130-400); RBC 4.23 10x6/uL (4.20-6.10); RDW 14.4 % (11.5-14.5); WBC 27.2 10x3/uL (4.8-10.8)
[2018-07-01 04:18] LABS: ANION GAP 13.7 mmol/L (8-16); CALCIUM 7.5 mg/dL (8.5-10.1); CARBON DIOXIDE 27.1 mmol/L (21.0-32.0); CREATININE - SERUM 1.2 mg/dL (0.6-1.3); POTASSIUM - SERUM 3.8 mmol/L (3.5-5.1)
[2018-07-02] VITALS (24 sets, daily range): BP systolic 83–133; BP diastolic 53–76
[2018-07-02 04:40] LABS: ANION GAP 8.1 mmol/L (8-16); CALCIUM 7.5 mg/dL (8.5-10.1); CARBON DIOXIDE 32.1 mmol/L (21.0-32.0); CREATININE - SERUM 1.1 mg/dL (0.6-1.3)
[2018-07-02 04:42] LABS: BASOPHILS 0.1 % (0-2); EOSINOPHILS 1.5 % (0-7); HEMATOCRIT 33.3 % (42.0-54.0); HEMOGLOBIN 11.1 g/dL (13.5-17.5); IMMATURE GRANULOCYTES 2.2 % (0-5); LYMPHOCYTES 4.4 % (15-50); MCHC 33.3 g/dL (31.0-37.0); MCV 84.1 fL (80.0-100.0); MEAN PLATELET VOLUME 10.8 fL (7.4-10.4); MONOCYTES 4.4 % (2-11); NEUTROPHILS 87.4 % (40-80); PLATELET COUNT 182 10x3/uL (130-400); RBC 3.96 10x6/uL (4.20-6.10); RDW 14.3 % (11.5-14.5); WBC 25.6 10x3/uL (4.8-10.8)
[2018-07-02 04:45] LABS: POTASSIUM - SERUM 3.2 mmol/L (3.5-5.1)
[2018-07-03] VITALS (24 sets, daily range): BP systolic 82–135; BP diastolic 43–87
[2018-07-03 04:49] LABS: BASOPHILS 0.1 % (0-2); EOSINOPHILS 0 % (0-7); HEMATOCRIT 30.9 % (42.0-54.0); HEMOGLOBIN 10.2 g/dL (13.5-17.5); IMMATURE GRANULOCYTES 1.6 % (0-5); LYMPHOCYTES 2.8 % (15-50); MCH 27.6 pg (26.0-34.0); MCV 83.7 fL (80.0-100.0); MEAN PLATELET VOLUME 11.2 fL (7.4-10.4); NEUTROPHILS 93.5 % (40-80); PLATELET COUNT 168 10x3/uL (130-400); RBC 3.69 10x6/uL (4.20-6.10); RDW 14.5 % (11.5-14.5)
[2018-07-03 04:56] LABS: ALBUMIN 1.3 g/dL (3.4-5.0); ANION GAP 7.8 mmol/L (8-16); BILIRUBIN - TOTAL 0.71 mg/dL (0.2-1.3); CALCIUM 7.3 mg/dL (8.5-10.1); CARBON DIOXIDE 31.7 mmol/L (21.0-32.0); CREATININE - SERUM 1.1 mg/dL (0.6-1.3); MAGNESIUM - SERUM 1.8 mg/dL (1.8-2.4); PHOSPHOROUS 2.9 mg/dL (2.5-4.9); POTASSIUM - SERUM 3.5 mmol/L (3.5-5.1); PROTEIN - SERUM 5.8 g/dL (6.4-8.2)
[2018-07-03 06:31] LABS: ERYTHROCYTE SEDIMENTATION RATE 72 mm/hr (0-20)
[2018-07-03 17:05] LABS: APPEARANCE HAZY (CLEAR); BILIRUBIN NEGATIVE (NEGATIVE); COLOR YELLOW (YELLOW); GLUCOSE 1000 mg/dL (NEGATIVE); KETONE NEGATIVE (NEGATIVE); NITRITE NEGATIVE (NEGATIVE); PROTEIN NEGATIVE (NEGATIVE); SPECIFIC GRAVITY 1.015 (1.005-1.020); UROBILINOGEN NORMAL (NORMAL)
[2018-07-03 17:07] LABS: BACTERIA MODERATE /hpf (NONE SEEN); RED CELLS - URINE OCC /hpf (0-5); WHITE CELLS - URINE 0-5 /hpf (0-5)
[2018-07-04] VITALS (24 sets, daily range): BP systolic 91–141; BP diastolic 50–83
[2018-07-04 04:53] LABS: BASOPHILS 0 % (0-2); EOSINOPHILS 0 % (0-7); HEMATOCRIT 30.3 % (42.0-54.0); IMMATURE GRANULOCYTES 1.6 % (0-5); MCH 27.8 pg (26.0-34.0); MCV 84.2 fL (80.0-100.0); MEAN PLATELET VOLUME 11.2 fL (7.4-10.4); MONOCYTES 1.9 % (2-11); NEUTROPHILS 94.5 % (40-80); PLATELET COUNT 187 10x3/uL (130-400); RDW 14.9 % (11.5-14.5); WBC 40.6 10x3/uL (4.8-10.8)
[2018-07-04 05:22] LABS: ALBUMIN 1.3 g/dL (3.4-5.0); ANION GAP 7.6 mmol/L (8-16); BILIRUBIN - TOTAL 0.46 mg/dL (0.2-1.3); CARBON DIOXIDE 32.6 mmol/L (21.0-32.0); CREATININE - SERUM 1.3 mg/dL (0.6-1.3); PHOSPHOROUS 2.4 mg/dL (2.5-4.9); POTASSIUM - SERUM 4.2 mmol/L (3.5-5.1); PROTEIN - SERUM 5.7 g/dL (6.4-8.2)
[2018-07-04 10:22] LABS: ANA REFLEX - DIRECT Negative (Negative)
[2018-07-05] VITALS (25 sets, daily range): BP systolic 94–158; BP diastolic 50–85
[2018-07-05 04:18] LABS: ANION GAP 8.3 mmol/L (8-16); CALCIUM 7.3 mg/dL (8.5-10.1); CARBON DIOXIDE 32.6 mmol/L (21.0-32.0); CREATININE - SERUM 1.2 mg/dL (0.6-1.3); POTASSIUM - SERUM 3.9 mmol/L (3.5-5.1)
[2018-07-05 04:19] LABS: HEMATOCRIT 31.3 % (42.0-54.0); HEMOGLOBIN 10.3 g/dL (13.5-17.5); MCH 27.7 pg (26.0-34.0); MCHC 32.9 g/dL (31.0-37.0); MCV 84.1 fL (80.0-100.0); MEAN PLATELET VOLUME 10.8 fL (7.4-10.4); PLATELET COUNT 193 10x3/uL (130-400); RBC 3.72 10x6/uL (4.20-6.10); RDW 14.8 % (11.5-14.5); WBC 39.4 10x3/uL (4.8-10.8)
[2018-07-05 06:22] LABS: LYMPHOCYTES 6 % (15-50); MONOCYTES 1 % (2-11); NEUTROPHILS 93 % (40-80); PLATELET ESTIMATE DECREASED
[2018-07-06] VITALS (24 sets, daily range): BP systolic 104–145; BP diastolic 60–80
[2018-07-06 03:59] LABS: BASOPHILS 0.1 % (0-2); EOSINOPHILS 0 % (0-7); HEMATOCRIT 29.8 % (42.0-54.0); HEMOGLOBIN 9.8 g/dL (13.5-17.5); MCH 27.8 pg (26.0-34.0); MCHC 32.9 g/dL (31.0-37.0); MCV 84.4 fL (80.0-100.0); MEAN PLATELET VOLUME 11.2 fL (7.4-10.4); MONOCYTES 3.8 % (2-11); NEUTROPHILS 93.1 % (40-80); PLATELET COUNT 205 10x3/uL (130-400); RBC 3.53 10x6/uL (4.20-6.10); WBC 33.2 10x3/uL (4.8-10.8)
[2018-07-06 04:08] LABS: ANION GAP 3.9 mmol/L (8-16); CALCIUM 7.1 mg/dL (8.5-10.1); CARBON DIOXIDE 37.6 mmol/L (21.0-32.0); CREATININE - SERUM 1.1 mg/dL (0.6-1.3); POTASSIUM - SERUM 3.5 mmol/L (3.5-5.1)
[2018-07-07] VITALS (19 sets, daily range): BP systolic 101–156; BP diastolic 63–88
[2018-07-07 06:14] LABS: BASOPHILS 0.1 % (0-2); EOSINOPHILS 0 % (0-7); HEMATOCRIT 30.7 % (42.0-54.0); HEMOGLOBIN 9.9 g/dL (13.5-17.5); IMMATURE GRANULOCYTES 0.9 % (0-5); LYMPHOCYTES 2.5 % (15-50); MCH 27.3 pg (26.0-34.0); MCHC 32.2 g/dL (31.0-37.0); MCV 84.6 fL (80.0-100.0); MONOCYTES 3.8 % (2-11); NEUTROPHILS 92.7 % (40-80); PLATELET COUNT 213 10x3/uL (130-400); RBC 3.63 10x6/uL (4.20-6.10); RDW 15.3 % (11.5-14.5); WBC 34.8 10x3/uL (4.8-10.8)
[2018-07-07 06:29] LABS: ANION GAP 6.5 mmol/L (8-16); CALCIUM 7.1 mg/dL (8.5-10.1); CARBON DIOXIDE 35.9 mmol/L (21.0-32.0); CREATININE - SERUM 1.1 mg/dL (0.6-1.3); POTASSIUM - SERUM 3.4 mmol/L (3.5-5.1)
[2018-07-08] VITALS (31 sets, daily range): BP systolic 76–149; BP diastolic 46–103
[2018-07-08 03:42] LABS: BASOPHILS 0.1 % (0-2); EOSINOPHILS 0.1 % (0-7); HEMATOCRIT 32.4 % (42.0-54.0); HEMOGLOBIN 10.6 g/dL (13.5-17.5); MCHC 32.7 g/dL (31.0-37.0); MCV 85.5 fL (80.0-100.0); MEAN PLATELET VOLUME 10.6 fL (7.4-10.4); MONOCYTES 3.9 % (2-11); NEUTROPHILS 91.9 % (40-80); PLATELET COUNT 235 10x3/uL (130-400); RBC 3.79 10x6/uL (4.20-6.10); RDW 15.5 % (11.5-14.5); WBC 35.9 10x3/uL (4.8-10.8)
[2018-07-08 03:56] LABS: ALBUMIN 1.4 g/dL (3.4-5.0); ANION GAP 3.4 mmol/L (8-16); BILIRUBIN - TOTAL 0.36 mg/dL (0.2-1.3); CALCIUM 7.2 mg/dL (8.5-10.1); CARBON DIOXIDE 37.3 mmol/L (21.0-32.0); CREATININE - SERUM 1.1 mg/dL (0.6-1.3); MAGNESIUM - SERUM 2.1 mg/dL (1.8-2.4); POTASSIUM - SERUM 3.7 mmol/L (3.5-5.1); PROTEIN - SERUM 5.6 g/dL (6.4-8.2)
[2018-07-08 16:13] LABS: ANCA - ANTIMYELOPEROXIDASE <9.0 U/mL (0.0-9.0); ANCA - ANTIPROTEINASE 3 <3.5 U/mL (0.0-3.5); ANCA - ATYPICAL <1:20 titer (Neg:<1:20); ANCA - CYTOPLASMIC <1:20 titer (Neg:<1:20); ANCA - PERINUCLEAR <1:20 titer (Neg:<1:20)
[2018-07-09] VITALS (24 sets, daily range): BP systolic 106–157; BP diastolic 63–83
[2018-07-09 05:23] LABS: BASOPHILS 0 % (0-2); EOSINOPHILS 0 % (0-7); HEMATOCRIT 35.7 % (42.0-54.0); HEMOGLOBIN 11.6 g/dL (13.5-17.5); IMMATURE GRANULOCYTES 0.7 % (0-5); LYMPHOCYTES 1.6 % (15-50); MCH 27.8 pg (26.0-34.0); MCHC 32.5 g/dL (31.0-37.0); MCV 85.6 fL (80.0-100.0); MEAN PLATELET VOLUME 11.2 fL (7.4-10.4); MONOCYTES 2.3 % (2-11); NEUTROPHILS 95.4 % (40-80); PLATELET COUNT 257 10x3/uL (130-400); RBC 4.17 10x6/uL (4.20-6.10); RDW 15.6 % (11.5-14.5); WBC 29.3 10x3/uL (4.8-10.8)
[2018-07-09 05:53] LABS: ALBUMIN 1.6 g/dL (3.4-5.0); ALKALINE PHOSPHATASE 151 U/L (46-116); AMYLASE - SERUM 60 U/L (25-115); BILIRUBIN - TOTAL 0.55 mg/dL (0.2-1.3); CALC OSMOLALITY 286 mosm/kg (275-300); CALCIUM 7.3 mg/dL (8.5-10.1); CARBON DIOXIDE 38.1 mmol/L (21.0-32.0); CHLORIDE - SERUM 100 mmol/L (98-107); GLUCOSE 114 mg/dL (74-106); LIPASE 210 U/L (73-393); POTASSIUM - SERUM 3.7 mmol/L (3.5-5.1); PRO BNP 3161 pg/mL (0-125); PROTEIN - SERUM 6.5 g/dL (6.4-8.2); SODIUM 140 mmol/L (136-145); UREA NITROGEN 33 mg/dL (7-18); eGFR NON AFRICAN AMERICAN 79 mL/min (90-120)
[2018-07-09 05:57] LABS: ALT (SGPT) 91 U/L (10-68)
[2018-07-10] VITALS (23 sets, daily range): BP systolic 120–160; BP diastolic 66–95
[2018-07-10 04:50] LABS: BASOPHILS 0 % (0-2); EOSINOPHILS 0.1 % (0-7); HEMATOCRIT 33.4 % (42.0-54.0); HEMOGLOBIN 10.7 g/dL (13.5-17.5); IMMATURE GRANULOCYTES 0.7 % (0-5); LYMPHOCYTES 1.5 % (15-50); MCH 27.3 pg (26.0-34.0); MCV 85.2 fL (80.0-100.0); MEAN PLATELET VOLUME 10.6 fL (7.4-10.4); MONOCYTES 2.3 % (2-11); NEUTROPHILS 95.4 % (40-80); PLATELET COUNT 249 10x3/uL (130-400); RBC 3.92 10x6/uL (4.20-6.10); RDW 15.8 % (11.5-14.5); WBC 29.4 10x3/uL (4.8-10.8)
[2018-07-10 04:55] LABS: CALC OSMOLALITY 288 mosm/kg (275-300); CALCIUM 7.2 mg/dL (8.5-10.1); CARBON DIOXIDE 37.2 mmol/L (21.0-32.0); CHLORIDE - SERUM 101 mmol/L (98-107); GLUCOSE 118 mg/dL (74-106); MAGNESIUM - SERUM 2.1 mg/dL (1.8-2.4); POTASSIUM - SERUM 3.8 mmol/L (3.5-5.1); SODIUM 141 mmol/L (136-145); UREA NITROGEN 33 mg/dL (7-18); eGFR NON AFRICAN AMERICAN 79 mL/min (90-120)
[2018-07-11] VITALS (24 sets, daily range): BP systolic 98–160; BP diastolic 57–88
[2018-07-11 04:11] LABS: BASOPHILS 0 % (0-2); EOSINOPHILS 0.5 % (0-7); HEMATOCRIT 33.5 % (42.0-54.0); HEMOGLOBIN 11.1 g/dL (13.5-17.5); IMMATURE GRANULOCYTES 0.8 % (0-5); MCH 28.2 pg (26.0-34.0); MCHC 33.1 g/dL (31.0-37.0); MCV 85.2 fL (80.0-100.0); MEAN PLATELET VOLUME 10.8 fL (7.4-10.4); MONOCYTES 3.4 % (2-11); NEUTROPHILS 92.3 % (40-80); PLATELET COUNT 251 10x3/uL (130-400); RBC 3.93 10x6/uL (4.20-6.10); RDW 15.7 % (11.5-14.5); WBC 28.9 10x3/uL (4.8-10.8)
[2018-07-11 04:22] LABS: CALC OSMOLALITY 296 mosm/kg (275-300); CALCIUM 7.9 mg/dL (8.5-10.1); CARBON DIOXIDE 36.3 mmol/L (21.0-32.0); CHLORIDE - SERUM 105 mmol/L (98-107); CREATININE - SERUM 0.9 mg/dL (0.6-1.3); GLUCOSE 101 mg/dL (74-106); MAGNESIUM - SERUM 2.2 mg/dL (1.8-2.4); POTASSIUM - SERUM 3.7 mmol/L (3.5-5.1); SODIUM 144 mmol/L (136-145); UREA NITROGEN 40 mg/dL (7-18); eGFR NON AFRICAN AMERICAN 89 mL/min (90-120)
[2018-07-12] VITALS (23 sets, daily range): BP systolic 93–144; BP diastolic 57–81
[2018-07-12 04:46] LABS: BASOPHILS 0 % (0-2); EOSINOPHILS 0.5 % (0-7); HEMATOCRIT 33.1 % (42.0-54.0); HEMOGLOBIN 10.5 g/dL (13.5-17.5); IMMATURE GRANULOCYTES 0.5 % (0-5); LYMPHOCYTES 3.6 % (15-50); MCH 27.3 pg (26.0-34.0); MCHC 31.7 g/dL (31.0-37.0); MONOCYTES 3.5 % (2-11); NEUTROPHILS 91.9 % (40-80); PLATELET COUNT 238 10x3/uL (130-400); RBC 3.85 10x6/uL (4.20-6.10); RDW 16.1 % (11.5-14.5)
[2018-07-12 04:53] LABS: WBC 16.5 10x3/uL (4.8-10.8)
[2018-07-12 05:02] LABS: CALC OSMOLALITY 289 mosm/kg (275-300); CALCIUM 7.9 mg/dL (8.5-10.1); CARBON DIOXIDE 35.6 mmol/L (21.0-32.0); CHLORIDE - SERUM 104 mmol/L (98-107); CREATININE - SERUM 0.8 mg/dL (0.6-1.3); GLUCOSE 88 mg/dL (74-106); MAGNESIUM - SERUM 2.1 mg/dL (1.8-2.4); POTASSIUM - SERUM 3.6 mmol/L (3.5-5.1); SODIUM 142 mmol/L (136-145); UREA NITROGEN 36 mg/dL (7-18); eGFR NON AFRICAN AMERICAN > 90 mL/min (90-120)
[2018-07-13] VITALS (24 sets, daily range): BP systolic 103–166; BP diastolic 64–106
[2018-07-13 03:47] LABS: BASOPHILS 0.1 % (0-2); EOSINOPHILS 0.8 % (0-7); HEMATOCRIT 35.9 % (42.0-54.0); HEMOGLOBIN 11.5 g/dL (13.5-17.5); IMMATURE GRANULOCYTES 0.4 % (0-5); LYMPHOCYTES 3.2 % (15-50); MCH 27.6 pg (26.0-34.0); MCV 86.1 fL (80.0-100.0); MEAN PLATELET VOLUME 10.4 fL (7.4-10.4); MONOCYTES 2.3 % (2-11); NEUTROPHILS 93.2 % (40-80); PLATELET COUNT 203 10x3/uL (130-400); RBC 4.17 10x6/uL (4.20-6.10); WBC 18.1 10x3/uL (4.8-10.8)
[2018-07-13 04:05] LABS: CALC OSMOLALITY 292 mosm/kg (275-300); CARBON DIOXIDE 32.8 mmol/L (21.0-32.0); CHLORIDE - SERUM 106 mmol/L (98-107); GLUCOSE 82 mg/dL (74-106); MAGNESIUM - SERUM 2.2 mg/dL (1.8-2.4); POTASSIUM - SERUM 3.3 mmol/L (3.5-5.1); SODIUM 143 mmol/L (136-145); UREA NITROGEN 37 mg/dL (7-18); eGFR NON AFRICAN AMERICAN 79 mL/min (90-120)
[2018-07-14] VITALS (24 sets, daily range): BP systolic 95–160; BP diastolic 61–92
[2018-07-14 05:36] LABS: BASOPHILS 0.1 % (0-2); EOSINOPHILS 0.3 % (0-7); HEMATOCRIT 33.3 % (42.0-54.0); HEMOGLOBIN 10.8 g/dL (13.5-17.5); IMMATURE GRANULOCYTES 0.4 % (0-5); LYMPHOCYTES 4.4 % (15-50); MCH 27.8 pg (26.0-34.0); MCHC 32.4 g/dL (31.0-37.0); MCV 85.6 fL (80.0-100.0); MEAN PLATELET VOLUME 10.6 fL (7.4-10.4); MONOCYTES 4.1 % (2-11); NEUTROPHILS 90.7 % (40-80); PLATELET COUNT 210 10x3/uL (130-400); RBC 3.89 10x6/uL (4.20-6.10); RDW 16.3 % (11.5-14.5); WBC 15.6 10x3/uL (4.8-10.8)
[2018-07-14 05:45] LABS: CALC OSMOLALITY 304 mosm/kg (275-300); CALCIUM 7.6 mg/dL (8.5-10.1); CHLORIDE - SERUM 107 mmol/L (98-107); GLUCOSE 225 mg/dL (74-106); MAGNESIUM - SERUM 2.1 mg/dL (1.8-2.4); POTASSIUM - SERUM 3.9 mmol/L (3.5-5.1); SODIUM 145 mmol/L (136-145); UREA NITROGEN 38 mg/dL (7-18); eGFR NON AFRICAN AMERICAN 79 mL/min (90-120)
[2018-07-15] VITALS (23 sets, daily range): BP systolic 87–158; BP diastolic 58–93
[2018-07-15 05:04] LABS: BASOPHILS 0.1 % (0-2); EOSINOPHILS 0.1 % (0-7); HEMATOCRIT 35.6 % (42.0-54.0); HEMOGLOBIN 11.5 g/dL (13.5-17.5); IMMATURE GRANULOCYTES 0.3 % (0-5); LYMPHOCYTES 4.8 % (15-50); MCH 27.8 pg (26.0-34.0); MCHC 32.3 g/dL (31.0-37.0); MEAN PLATELET VOLUME 11.4 fL (7.4-10.4); MONOCYTES 6.1 % (2-11); NEUTROPHILS 88.6 % (40-80); PLATELET COUNT 173 10x3/uL (130-400); RBC 4.14 10x6/uL (4.20-6.10); RDW 16.3 % (11.5-14.5); WBC 14.5 10x3/uL (4.8-10.8)
[2018-07-15 05:22] LABS: ALBUMIN 1.6 g/dL (3.4-5.0); ALKALINE PHOSPHATASE 121 U/L (46-116); ALT (SGPT) 339 U/L (10-68); BILIRUBIN - TOTAL 0.82 mg/dL (0.2-1.3); CALC OSMOLALITY 309 mosm/kg (275-300); CALCIUM 7.5 mg/dL (8.5-10.1); CARBON DIOXIDE 33.5 mmol/L (21.0-32.0); CHLORIDE - SERUM 109 mmol/L (98-107); GLUCOSE 212 mg/dL (74-106); MAGNESIUM - SERUM 2.2 mg/dL (1.8-2.4); POTASSIUM - SERUM 3.7 mmol/L (3.5-5.1); SODIUM 149 mmol/L (136-145); UREA NITROGEN 36 mg/dL (7-18); eGFR NON AFRICAN AMERICAN 79 mL/min (90-120)
[2018-07-16] VITALS (24 sets, daily range): BP systolic 123–162; BP diastolic 68–92
[2018-07-16 05:21] LABS: BASOPHILS 0.1 % (0-2); EOSINOPHILS 0.4 % (0-7); HEMATOCRIT 32.7 % (42.0-54.0); HEMOGLOBIN 10.6 g/dL (13.5-17.5); IMMATURE GRANULOCYTES 0.4 % (0-5); LYMPHOCYTES 6.2 % (15-50); MCHC 32.4 g/dL (31.0-37.0); MCV 86.3 fL (80.0-100.0); MONOCYTES 4.7 % (2-11); NEUTROPHILS 88.2 % (40-80); PLATELET COUNT 187 10x3/uL (130-400); RBC 3.79 10x6/uL (4.20-6.10); RDW 16.3 % (11.5-14.5); WBC 13.9 10x3/uL (4.8-10.8)
[2018-07-16 05:28] LABS: ALKALINE PHOSPHATASE 112 U/L (46-116); ALT (SGPT) 267 U/L (10-68); BILIRUBIN - TOTAL 0.81 mg/dL (0.2-1.3); CALCIUM 7.4 mg/dL (8.5-10.1); CARBON DIOXIDE 33.2 mmol/L (21.0-32.0); CHLORIDE - SERUM 107 mmol/L (98-107); CREATININE - SERUM 0.8 mg/dL (0.6-1.3); MAGNESIUM - SERUM 2.1 mg/dL (1.8-2.4); POTASSIUM - SERUM 3.7 mmol/L (3.5-5.1); PROTEIN - SERUM 6.1 g/dL (6.4-8.2); SODIUM 145 mmol/L (136-145); UREA NITROGEN 36 mg/dL (7-18); eGFR NON AFRICAN AMERICAN > 90 mL/min (90-120)
[2018-07-16 05:32] LABS: CALC OSMOLALITY 299 mosm/kg (275-300); GLUCOSE 156 mg/dL (74-106)
[2018-07-17] VITALS (25 sets, daily range): BP systolic 150–190; BP diastolic 79–99
[2018-07-17 04:32] LABS: BASOPHILS 0.1 % (0-2); HEMATOCRIT 31.7 % (42.0-54.0); HEMOGLOBIN 10.3 g/dL (13.5-17.5); IMMATURE GRANULOCYTES 0.7 % (0-5); LYMPHOCYTES 6.3 % (15-50); MCH 27.9 pg (26.0-34.0); MCHC 32.5 g/dL (31.0-37.0); MCV 85.9 fL (80.0-100.0); MEAN PLATELET VOLUME 11.3 fL (7.4-10.4); MONOCYTES 5.5 % (2-11); NEUTROPHILS 86.4 % (40-80); PLATELET COUNT 159 10x3/uL (130-400); RBC 3.69 10x6/uL (4.20-6.10); RDW 16.1 % (11.5-14.5); WBC 13.6 10x3/uL (4.8-10.8)
[2018-07-17 05:02] LABS: ALBUMIN 2.3 g/dL (3.4-5.0); ALKALINE PHOSPHATASE 114 U/L (46-116); BILIRUBIN - TOTAL 0.81 mg/dL (0.2-1.3); CALCIUM 7.8 mg/dL (8.5-10.1); CARBON DIOXIDE 32.5 mmol/L (21.0-32.0); CHLORIDE - SERUM 105 mmol/L (98-107); CREATININE - SERUM 0.7 mg/dL (0.6-1.3); MAGNESIUM - SERUM 2.1 mg/dL (1.8-2.4); POTASSIUM - SERUM 3.4 mmol/L (3.5-5.1); PROTEIN - SERUM 6.5 g/dL (6.4-8.2); SODIUM 142 mmol/L (136-145); UREA NITROGEN 30 mg/dL (7-18); eGFR NON AFRICAN AMERICAN > 90 mL/min (90-120)
[2018-07-17 05:07] LABS: ALT (SGPT) 175 U/L (10-68); CALC OSMOLALITY 287 mosm/kg (275-300); GLUCOSE 81 mg/dL (74-106)
[2018-07-17 17:58] LABS: HEMATOCRIT 33.3 % (42.0-54.0); HEMOGLOBIN 10.8 g/dL (13.5-17.5); MCH 27.5 pg (26.0-34.0); MCHC 32.4 g/dL (31.0-37.0); MCV 84.7 fL (80.0-100.0); MEAN PLATELET VOLUME 10.9 fL (7.4-10.4); RBC 3.93 10x6/uL (4.20-6.10); RDW 15.7 % (11.5-14.5); WBC 14.2 10x3/uL (4.8-10.8)
[2018-07-17 18:33] LABS: ALBUMIN 2.4 g/dL (3.4-5.0); ALKALINE PHOSPHATASE 124 U/L (46-116); ALT (SGPT) 153 U/L (10-68); BILIRUBIN - TOTAL 0.86 mg/dL (0.2-1.3); CALCIUM 8.2 mg/dL (8.5-10.1); CARBON DIOXIDE 31.5 mmol/L (21.0-32.0); CHLORIDE - SERUM 105 mmol/L (98-107); CREATININE - SERUM 0.6 mg/dL (0.6-1.3); PROTEIN - SERUM 6.7 g/dL (6.4-8.2); SODIUM 140 mmol/L (136-145); UREA NITROGEN 26 mg/dL (7-18); eGFR NON AFRICAN AMERICAN > 90 mL/min (90-120)
[2018-07-17 18:37] LABS: CALC OSMOLALITY 285 mosm/kg (275-300); GLUCOSE 131 mg/dL (74-106); POTASSIUM - SERUM 4.1 mmol/L (3.5-5.1)
[2018-07-17 19:00] LABS: APTT 32.5 SECONDS (22.8-39.4)
[2018-07-17 19:01] LABS: INR 1.22 (0.85-1.17); PROTIME 14.9 SECONDS (11.6-15.0)
[2018-07-18] VITALS (7 sets, daily range): BP systolic 151–191; BP diastolic 75–105
[2018-07-18 03:06] LABS: APPEARANCE CLOUDY (CLEAR); BILIRUBIN NEGATIVE (NEGATIVE); COLOR YELLOW (YELLOW); GLUCOSE 1000 mg/dL (NEGATIVE); KETONE NEGATIVE (NEGATIVE); NITRITE NEGATIVE (NEGATIVE); PROTEIN TRACE mg/dL (NEGATIVE)
[2018-07-18 03:08] LABS: BACTERIA FEW /hpf (NONE SEEN); EPITHELIAL CELLS 0-5 /hpf (0-5); RED CELLS - URINE 0-5 /hpf (0-5); WHITE CELLS - URINE 0-5 /hpf (0-5); YEAST >1+ WITH HYPHAE /hpf (NONE SEEN)
[2018-07-18 04:32] LABS: BASOPHILS 0.1 % (0-2); EOSINOPHILS 0.2 % (0-7); HEMATOCRIT 34.8 % (42.0-54.0); HEMOGLOBIN 11.3 g/dL (13.5-17.5); IMMATURE GRANULOCYTES 0.8 % (0-5); LYMPHOCYTES 3.9 % (15-50); MCH 27.7 pg (26.0-34.0); MCHC 32.5 g/dL (31.0-37.0); MCV 85.3 fL (80.0-100.0); MEAN PLATELET VOLUME 10.8 fL (7.4-10.4); MONOCYTES 4.3 % (2-11); NEUTROPHILS 90.7 % (40-80); PLATELET COUNT 161 10x3/uL (130-400); RBC 4.08 10x6/uL (4.20-6.10); RDW 15.9 % (11.5-14.5); WBC 15.9 10x3/uL (4.8-10.8)
[2018-07-18 04:44] LABS: APTT 27.2 SECONDS (22.8-39.4); INR 1.18 (0.85-1.17); PROTIME 14.5 SECONDS (11.6-15.0)
[2018-07-18 04:48] LABS: ALBUMIN 2.6 g/dL (3.4-5.0); ALKALINE PHOSPHATASE 132 U/L (46-116); ALT (SGPT) 141 U/L (10-68); BILIRUBIN - TOTAL 1.23 mg/dL (0.2-1.3); CALC OSMOLALITY 290 mosm/kg (275-300); CALCIUM 7.9 mg/dL (8.5-10.1); CARBON DIOXIDE 27.9 mmol/L (21.0-32.0); CHLORIDE - SERUM 101 mmol/L (98-107); CREATININE - SERUM 0.7 mg/dL (0.6-1.3); PROTEIN - SERUM 7.1 g/dL (6.4-8.2); SODIUM 139 mmol/L (136-145); UREA NITROGEN 27 mg/dL (7-18); eGFR NON AFRICAN AMERICAN > 90 mL/min (90-120)
[2018-07-18 05:04] LABS: GLUCOSE 237 mg/dL (74-106)
== END 2018-07-18 14:30 | DRG 208 ==
LOC: D.ICU 17:47
PROVIDERS: Emergency Medicine; Internal Medicine Cardiovascular Disease; Internal Medicine Nephrology; Internal Medicine Pulmonary Disease; Student in an Organized Health Care Education/Training Program
PROC: 5A1945Z Respiratory Ventilation, 24-96 Consecutive Hours (ICD-10-PCS; principal; 2018-06-22)
PROC: 0BH17EZ Insertion of Endotracheal Airway into Trachea, Via Natural or Artificial Opening (ICD-10-PCS; 2018-06-22)
PROC: 5A09357 Assistance with Respiratory Ventilation, Less than 24 Consecutive Hours, Continuous Positive Airway Pressure (ICD-10-PCS; 2018-06-26)
PROC: 05HY33Z Insertion of Infusion Device into Upper Vein, Percutaneous Approach (ICD-10-PCS; 2018-06-28)
PROC: 5A09557 Assistance with Respiratory Ventilation, Greater than 96 Consecutive Hours, Continuous Positive Airway Pressure (ICD-10-PCS; 2018-07-11)
PROC: 5A1935Z Respiratory Ventilation, Less than 24 Consecutive Hours (ICD-10-PCS; 2018-07-18)
DX: J96.01 Acute respiratory failure with hypoxia (principal); A41.9 Sepsis, unspecified organism; R65.21 Severe sepsis with septic shock; E43 Unspecified severe protein-calorie malnutrition; K72.00 Acute and subacute hepatic failure without coma; I50.23 Acute on chronic systolic (congestive) heart failure; J15.212 Pneumonia due to Methicillin resistant Staphylococcus aureus; E87.2 Acidosis; I42.9 Cardiomyopathy, unspecified; I82.621 Acute embolism and thrombosis of deep veins of right upper extremity; G81.91 Hemiplegia, unspecified affecting right dominant side; J96.02 Acute respiratory failure with hypercapnia; I46.9 Cardiac arrest, cause unspecified; I48.0 Paroxysmal atrial fibrillation; K21.9 Gastro-esophageal reflux disease without esophagitis; E11.9 Type 2 diabetes mellitus without complications; E03.9 Hypothyroidism, unspecified; N40.0 Benign prostatic hyperplasia without lower urinary tract symptoms; D64.9 Anemia, unspecified; I11.0 Hypertensive heart disease with heart failure; Z68.20 Body mass index [BMI] 20.0-20.9, adult; E83.51 Hypocalcemia; E87.6 Hypokalemia; R79.89 Other specified abnormal findings of blood chemistry; I25.10 Atherosclerotic heart disease of native coronary artery without angina pectoris